=== PATIENT | male | born 1965 | race Caucasian/White ===

== ENCOUNTER 2019-05-22 10:44 | Inpatient (IN) | payer OTHER ==
[~2019-05-22] VITALS: Ht 175.3 cm; Wt 65.0 kg
[~2019-05-22 10:44] MED LIST: ACET-1600 PO; DEXA4TAB66 PO; LEVE500T8 PO; rolaids PO
[2019-05-22] MEDS ORDERED: LACTATED RINGERS 1,000 ML IV SCH (11:08)
[2019-05-22] MEDS ORDERED: GADOTERATE 7.5 MMOL/15 ML SYR ONE (13:19)
[2019-05-22] MEDS ORDERED: PROPOFOL 50 ML ONE (14:13)
[2019-05-22] MEDS ORDERED: FENTANYL PF 250 MCG/5ML ONE ×2 (14:13→15:29)
[2019-05-22] MEDS ORDERED: THROMBIN 5,000 UNIT VIAL TP ONE (14:16)
[2019-05-22] MEDS ORDERED: MIDAZOLAM 1 MG/ML, 2ML ONE (14:26)
[2019-05-22] MEDS ORDERED: DEXAMETHASONE 4 MG/ML, 1ML ONE ×2 (15:03)
[2019-05-22] MEDS ORDERED: ONDANSETRON 2MG/ML, 2ML ONE ×2 (15:03→19:50)
[2019-05-22] MEDS ORDERED: CEFAZOLIN 1,000 MG ONE (15:07)
[2019-05-22] MEDS ORDERED: ROCURONIUM 10MG/ML,5ML ONE (15:07)
[2019-05-22] MEDS ORDERED: MANNITOL PMX 20% 500 ML ONE (15:09)
[2019-05-22] MEDS ORDERED: BUPIVACAINE/PF-EPI 0.5% 1:200K INFIL ONE (15:21)
[2019-05-22] MEDS ORDERED: EPINEPHRINE 1 MG/ML, 1ML INFIL ONE (15:21)
[2019-05-22] MEDS ORDERED: OXYcodone 5 MG/5 ML ORAL.SOL UDC PO PRN (15:30)
[2019-05-22] MEDS ORDERED: ONDANSETRON ODT 8 MG PO PRN (15:30)
[2019-05-22] MEDS ORDERED: EPHEDRINE 50 MG/ML, 1ML IVPush PRN (15:30)
[2019-05-22] MEDS ORDERED: PROMETHAZINE 25 MG/ML, 1ML IV PRN (15:30)
[2019-05-22] MEDS ORDERED: MORPHINE SULFATE 4 MG/ML, 1ML IVPush PRN (15:30)
[2019-05-22] MEDS ORDERED: DIPHENHYDRAMINE 50 MG/ML, 1ML IVPush PRN (15:30)
[2019-05-22] MEDS ORDERED: METOPROLOL 1 MG/ML, 5ML IV PRN (15:30)
[2019-05-22] MEDS ORDERED: FENTANYL PF 100 MCG/2ML IV PRN (15:30)
[2019-05-22] MEDS ORDERED: hydrALAzine 20 MG/ML, 1ML IV PRN (15:30)
[2019-05-22] MEDS ORDERED: EPHEDRINE 50 MG/ML, 1ML IM PRN (15:30)
[2019-05-22] MEDS ORDERED: DIAZEPAM 5 MG/ML, 2ML IVPush PRN (15:30)
[2019-05-22] MEDS ORDERED: ONDANSETRON 2MG/ML, 2ML IV PRN ×2 (15:30→19:00)
[2019-05-22] MEDS ORDERED: ALBUTEROL/IPRATROPIUM 2.5MG/0.5MG, 3 ML NPPB PRN (15:30)
[2019-05-22] MEDS ORDERED: MAGNESIUM HYDROXIDE 8%, 30ML UDC PO PRN (19:00)
[2019-05-22] MEDS ORDERED: LABETALOL 5MG/ML, 20ML IV PRN (19:00)
[2019-05-22] MEDS ORDERED: MORPHINE SULFATE 4 MG/ML, 1ML IV PRN (19:00)
[2019-05-22] MEDS ORDERED: ACETAMINOPHEN 325 MG TABLET PO PRN (19:00)
[2019-05-22] MEDS ORDERED: BISACODYL 10 MG SUPP PR PRN (19:00)
[2019-05-22 19:42] LABS: MEAN CORPUSCULAR HEMOGLOBIN 27.8 pg (27.5-34.5); MEAN CORPUSCULAR HGB CONC 33.2 g/dL (33.2-36.2); MEAN CORPUSCULAR VOLUME 83.6 fL (81-97); MEAN PLATELET VOLUME 8.2 fL (7.4-10.4); PLATELET COUNT 184 x10^3/uL (130-400); RED BLOOD COUNT 4.71 x10^6/uL (4.38-5.82)
[2019-05-22 19:46] LABS: ANION GAP 7 mmol/L (5-15); CALCIUM 8.2 mg/dL (8.5-10.1); CHLORIDE 110 mmol/L (98-107)
[2019-05-22 19:48] LABS: CREATININE 0.84 mg/dL (0.7-1.3)
[2019-05-22] MEDS ORDERED: POTASSIUM CHLORIDE 40 MEQ in SODIUM CHLORIDE 0.9% 1,000 ML IV SCH (20:04)
[2019-05-22 20:21] LABS: BASOPHILS # (AUTO) 0.03 x10^3/uL (0-0.1); BASOPHILS % (AUTO) 0 % (0-1); EOSINOPHILS # (AUTO) 0.12 x10^3/uL (0-0.4); EOSINOPHILS % (AUTO) 1 % (1-7); LYMPHOCYTES # (AUTO) 1.18 x10^3/uL (1-3.4); LYMPHOCYTES % (AUTO) 6 % (22-44); MD SCAN; MONOCYTES # (AUTO) 0.59 x10^3/uL (0.2-0.8); MONOCYTES % (AUTO) 3 % (2-9); NEUTROPHILS # (AUTO) 17.32 x10^3/uL (1.8-6.8); NEUTROPHILS % (AUTO) 90 % (42-75)
[2019-05-22] MEDS: CEFAZOLIN PMX 1GM/50ML 50 ML IVPB SCH (20:31)
[2019-05-22] MEDS ORDERED: DEXAMETHASONE 4 MG TABLET PO SCH (21:00)
[2019-05-22] MEDS: LEVETIRACETAM 500 MG TABLET PO SCH (21:00)
[2019-05-22] MEDS ORDERED: DEXAMETHASONE 4 MG/ML, 1ML IV SCH (21:00)
[2019-05-22] MEDS ORDERED: FAMOTIDINE 20 MG TABLET ONE (21:23)
[2019-05-22] MEDS: FAMOTIDINE 20 MG TABLET PO SCH (21:30)
[2019-05-22] MEDS: OXYcodone/APAP 5/325MG TABLET PO PRN (21:30)
[2019-05-22] MEDS: ACETAMINOPHEN 500 MG TABLET PO SCH (22:05)
[2019-05-23] MEDS: OXYcodone/APAP 5/325MG TABLET PO PRN ×5 (00:12→21:22)
[2019-05-23 04:00] VITALS: BP 116/74
[2019-05-23 05:03] LABS: MICROSCOPIC AUTO
[2019-05-23 05:05] LABS: CULTURE INDICATED? NO
[2019-05-23 05:15] LABS: OSMOLALITY,URINE 191 mOsm/kg (500-850)
[2019-05-23 06:04] LABS: ANION GAP 7 mmol/L (5-15); CALCIUM 7.7 mg/dL (8.5-10.1); CHLORIDE 109 mmol/L (98-107); CREATININE 0.79 mg/dL (0.7-1.3)
[2019-05-23] MEDS: CEFAZOLIN PMX 1GM/50ML 50 ML IVPB SCH (06:32)
[2019-05-23] MEDS: LEVETIRACETAM 500 MG TABLET PO SCH ×2 (08:44→21:21)
[2019-05-23] MEDS: ACETAMINOPHEN 500 MG TABLET PO SCH ×2 (08:45→21:21)
[2019-05-23] MEDS: FAMOTIDINE 20 MG TABLET PO SCH ×2 (08:45→21:21)
[2019-05-23] MEDS: SENNA/DOCUSATE TABLET PO SCH (08:45)
[2019-05-23] MEDS: DEXAMETHASONE 4 MG TABLET PO SCH ×3 (08:45→21:21)
[2019-05-24 04:00] VITALS: BP 109/62
[2019-05-24 04:48] LABS: BASOPHILS # (AUTO) 0.03 x10^3/uL (0-0.1); BASOPHILS % (AUTO) 0 % (0-1); EOSINOPHILS % (AUTO) 0 % (1-7); LYMPHOCYTES # (AUTO) 0.68 x10^3/uL (1-3.4); LYMPHOCYTES % (AUTO) 4 % (22-44); MD NO; MEAN CORPUSCULAR HEMOGLOBIN 27.7 pg (27.5-34.5); MEAN CORPUSCULAR HGB CONC 32.8 g/dL (33.2-36.2); MEAN CORPUSCULAR VOLUME 84.5 fL (81-97); MEAN PLATELET VOLUME 8.1 fL (7.4-10.4); MONOCYTES # (AUTO) 0.77 x10^3/uL (0.2-0.8); MONOCYTES % (AUTO) 5 % (2-9); NEUTROPHILS # (AUTO) 14.94 x10^3/uL (1.8-6.8); NEUTROPHILS % (AUTO) 91 % (42-75); PLATELET COUNT 194 x10^3/uL (130-400); RED BLOOD COUNT 4.64 x10^6/uL (4.38-5.82); RED CELL DISTRIBUTION WIDTH 14.8 % (9.4-14.8)
[2019-05-24 04:57] LABS: ALANINE AMINOTRANSFERASE 33 U/L (12-78); ALBUMIN 2.4 g/dL (3.4-5.0); ANION GAP 6 mmol/L (5-15); CHLORIDE 109 mmol/L (98-107); CREATININE 0.72 mg/dL (0.7-1.3)
[2019-05-24 05:00] LABS: ALKALINE PHOSPHATASE 75 U/L (45-117); BILIRUBIN,TOTAL 0.4 mg/dL (0.2-1.0); TOTAL PROTEIN 6.2 g/dL (6.4-8.2)
[2019-05-24] MEDS ORDERED: GADOTERATE 7.5 MMOL/15 ML SYR ONE (05:43)
[2019-05-24] MEDS: FAMOTIDINE 20 MG TABLET PO SCH ×2 (07:35→20:40)
[2019-05-24] MEDS: SENNA/DOCUSATE TABLET PO SCH (07:35)
[2019-05-24] MEDS: DEXAMETHASONE 4 MG TABLET PO SCH ×4 (07:36→20:40)
[2019-05-24] MEDS: LEVETIRACETAM 500 MG TABLET PO SCH ×2 (07:36→20:40)
[2019-05-24] MEDS: OXYcodone/APAP 5/325MG TABLET PO PRN (07:37)
[2019-05-24] MEDS: ACETAMINOPHEN 500 MG TABLET PO SCH ×3 (07:38→20:40)
[2019-05-24] MEDS: OXYcodone 5 MG/5 ML ORAL.SOL UDC PO PRN ×2 (13:42→19:17)
[2019-05-24 18:35] VITALS: BP 117/74
[2019-05-24 23:54] VITALS: BP 115/75
[2019-05-25] MEDS: OXYcodone 5 MG/5 ML ORAL.SOL UDC PO PRN ×4 (01:46→20:39)
[2019-05-25 03:50] VITALS: BP 123/84
[2019-05-25 08:28] VITALS: BP 123/75
[2019-05-25] MEDS: FAMOTIDINE 20 MG TABLET PO SCH ×2 (08:43→20:38)
[2019-05-25] MEDS: ACETAMINOPHEN 500 MG TABLET PO SCH ×2 (08:43→20:39)
[2019-05-25] MEDS: DEXAMETHASONE 4 MG TABLET PO SCH ×3 (08:44→20:39)
[2019-05-25] MEDS: LEVETIRACETAM 500 MG TABLET PO SCH ×2 (08:45→20:38)
[2019-05-25] MEDS: SENNA/DOCUSATE TABLET PO SCH (08:45)
[2019-05-25 09:47] LABS: BASOPHILS # (AUTO) 0.01 x10^3/uL (0-0.1); BASOPHILS % (AUTO) 0 % (0-1); EOSINOPHILS # (AUTO) 0.05 x10^3/uL (0-0.4); EOSINOPHILS % (AUTO) 0 % (1-7); LYMPHOCYTES # (AUTO) 1.51 x10^3/uL (1-3.4); LYMPHOCYTES % (AUTO) 10 % (22-44); MD NO; MEAN CORPUSCULAR HGB CONC 33.4 g/dL (33.2-36.2); MEAN CORPUSCULAR VOLUME 83.8 fL (81-97); MEAN PLATELET VOLUME 8.2 fL (7.4-10.4); MONOCYTES # (AUTO) 1.11 x10^3/uL (0.2-0.8); MONOCYTES % (AUTO) 7 % (2-9); NEUTROPHILS % (AUTO) 83 % (42-75); PLATELET COUNT 194 x10^3/uL (130-400); RED BLOOD COUNT 4.42 x10^6/uL (4.38-5.82); RED CELL DISTRIBUTION WIDTH 14.5 % (9.4-14.8)
[2019-05-25 09:51] LABS: ANION GAP 7 mmol/L (5-15); CALCIUM 7.9 mg/dL (8.5-10.1); CHLORIDE 103 mmol/L (98-107); CREATININE 0.68 mg/dL (0.7-1.3)
[2019-05-25 11:31] VITALS: BP 109/65
[2019-05-25 16:26] VITALS: BP 121/77
[2019-05-25 18:07] VITALS: BP 119/85
[2019-05-26] MEDS: OXYcodone 5 MG/5 ML ORAL.SOL UDC PO PRN ×4 (01:13→13:42)
[2019-05-26 01:20] VITALS: BP 126/81
[2019-05-26 06:02] LABS: BASOPHILS % (AUTO) 0 % (0-1); EOSINOPHILS % (AUTO) 0 % (1-7); LYMPHOCYTES # (AUTO) 1.37 x10^3/uL (1-3.4); LYMPHOCYTES % (AUTO) 9 % (22-44); MD NO; MEAN CORPUSCULAR HEMOGLOBIN 27.9 pg (27.5-34.5); MEAN CORPUSCULAR HGB CONC 32.8 g/dL (33.2-36.2); MEAN PLATELET VOLUME 8.6 fL (7.4-10.4); MONOCYTES # (AUTO) 0.96 x10^3/uL (0.2-0.8); MONOCYTES % (AUTO) 6 % (2-9); NEUTROPHILS # (AUTO) 12.54 x10^3/uL (1.8-6.8); NEUTROPHILS % (AUTO) 84 % (42-75); PLATELET COUNT 199 x10^3/uL (130-400); RED BLOOD COUNT 4.77 x10^6/uL (4.38-5.82); RED CELL DISTRIBUTION WIDTH 14.7 % (9.4-14.8)
[2019-05-26 06:15] LABS: CHLORIDE 101 mmol/L (98-107)
[2019-05-26 06:22] LABS: ANION GAP 7 mmol/L (5-15); CALCIUM 8.4 mg/dL (8.5-10.1); CREATININE 0.76 mg/dL (0.7-1.3)
[2019-05-26 07:07] VITALS: BP 123/79
[2019-05-26] MEDS: SENNA/DOCUSATE TABLET PO SCH (08:00)
[2019-05-26] MEDS: FAMOTIDINE 20 MG TABLET PO SCH (08:00)
[2019-05-26] MEDS: DEXAMETHASONE 4 MG TABLET PO SCH (08:00)
[2019-05-26] MEDS: ACETAMINOPHEN 500 MG TABLET PO SCH (08:00)
[2019-05-26] MEDS: LEVETIRACETAM 500 MG TABLET PO SCH (08:00)
[2019-05-26 14:23] VITALS: BP 118/78
== END 2019-05-26 14:34 | disposition home or self-care (01) | DRG 27 ==
LOC: ORIP 10:44 → CCU 19:40 → 4NE 05-24 18:26 → DCLOUNGE 05-26 14:25
PROVIDERS: ADMIT Neurological Surgery; ATTEND Neurological Surgery
PROC: 00B00ZX Excision of Brain, Open Approach, Diagnostic (ICD-10-PCS; 2019-05-22)
PROC: 00B00ZZ Excision of Brain, Open Approach (ICD-10-PCS; 2019-05-22)
PROC: 03HY32Z Insertion of Monitoring Device into Upper Artery, Percutaneous Approach (ICD-10-PCS; principal; 2019-05-22 14:15)
PROC: 0T9B70Z Drainage of Bladder with Drainage Device, Via Natural or Artificial Opening (ICD-10-PCS; 2019-05-23)
DX: C79.31 Secondary malignant neoplasm of brain (principal); K21.9 Gastro-esophageal reflux disease without esophagitis; Z87.891 Personal history of nicotine dependence; Z80.8 Family history of malignant neoplasm of other organs or systems; Z83.3 Family history of diabetes mellitus
CPT/HCPCS: 36415; 70552; 70553; 80048; 80053; 81001; 82962; 83735; 83930; 83935; 85025; 86850; 86900; 87081; 88307; 88331; 88341; 88342; 93005; 99156; 99157; C1713; G0378; J0171; J0690; J1100; J2250; J2405; J2704; J3010; J3480; 92523-GN; A4648; A9575; C1781; J7030; J7120

== ENCOUNTER 2019-06-23 12:02 | Inpatient (IN) | payer OTHER ==
[~2019-06-23] VITALS: Ht 175.3 cm; Wt 57.6 kg
--- NOTE | 2019-06-23 12:28 | NUR ---
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 PT TO RESTROOM. STEADY UPON AMBULATION FROM WHEELCHAIR TO TOILET.
[2019-06-23 12:57] LABS: MEAN CORPUSCULAR HEMOGLOBIN 28.4 pg (27.5-34.5); MEAN CORPUSCULAR HGB CONC 33.2 g/dL (33.2-36.2); MEAN CORPUSCULAR VOLUME 85.6 fL (81-97); MEAN PLATELET VOLUME 8.4 fL (7.4-10.4); PLATELET COUNT 350 x10^3/uL (130-400); RED BLOOD COUNT 5.04 x10^6/uL (4.38-5.82); RED CELL DISTRIBUTION WIDTH 17.2 % (9.4-14.8)
[2019-06-23] MEDS ORDERED: SODIUM CHLORIDE 0.9% 1,000 ML IV ONE (13:07)
[2019-06-23 13:14] LABS: CHLORIDE 103 mmol/L (98-107)
[2019-06-23 13:17] LABS: ANION GAP 9 mmol/L (5-15); CALCIUM 8.8 mg/dL (8.5-10.1); CREATININE 0.79 mg/dL (0.7-1.3)
[2019-06-23 13:21] LABS: MD YES
[2019-06-23] MEDS ORDERED: DEXAMETHASONE 4 MG/ML, 1ML IVPush ONE (13:30)
[2019-06-23] MEDS ORDERED: SODIUM CHLORIDE FLUSH 10ML SYR IVF ONE (13:30)
[2019-06-23 13:31] LABS: LYMPH#(MANUAL) 1.29 x10^3/uL (1-3.4); LYMPHS% (MANUAL) 6 % (22-44); MONOS#(MANUAL) 1.51 x10^3/uL (0.3-2.7); MONOS% (MANUAL) 7 % (2-9); NRBC % (MANUAL) 1 % (0-1); SEG#(MANUAL) 18.71 x10^3/uL (1.8-6.8); SEGS% (MANUAL) 87 % (42-75)
[2019-06-23] MEDS ORDERED: DEXAMETHASONE 4 MG/ML, 1ML ONE (13:31)
[2019-06-23] MEDS ORDERED: ONDANSETRON 2MG/ML, 2ML ONE (13:31)
[2019-06-23] MEDS ORDERED: MORPHINE SULFATE 4 MG/ML, 1ML ONE (13:31)
[2019-06-23 13:33] LABS: ANISOCYTOSIS 1+; POLYCHROMASIA 1+
[2019-06-23] MEDS: MORPHINE SULFATE 4 MG/ML, 1ML IVPush PRN (13:33)
[2019-06-23 13:35] LABS: <PLATELET ESTIMATE> ADEQUATE; LARGE PLATELETS 1+
[2019-06-23] MEDS ORDERED: ONDANSETRON 2MG/ML, 2ML IVPush ONE (14:00)
--- NOTE | 2019-06-23 14:24 | NUR ---
TO ESOPHAGRAM REPORTS THROAT PAIN SLIGHTLY IMPROVED TO 4/10
[2019-06-23 14:30] LABS: MICROSCOPIC NOT IND
[2019-06-23 14:32] LABS: CULTURE INDICATED? NO
[2019-06-23] MEDS ORDERED: HYDROmorphone 1 MG/ML, 1ML INJ ONE ×2 (14:44→16:53)
[2019-06-23] MEDS: HYDROmorphone 2 MG/ML, 1ML IVPush PRN ×2 (14:46→16:55)
--- NOTE | 2019-06-23 14:47 | NUR ---
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
--- NOTE | 2019-06-23 15:16 | NUR ---
to ct scan
[2019-06-23] MEDS ORDERED: OMNIPAQUE 350 MG/ML, 150 ML BOTTLE ONE (15:28)
[2019-06-23] MEDS ORDERED: AMPICILLIN/SULBACTAM 3 GM in SODIUM CHLORIDE 0.9% 100 ML IV ONE (16:30)
[2019-06-23] MEDS ORDERED: PIPERACILLIN/TAZO/PMX 3.375GM 50 ML IVPB ONE (16:30)
[2019-06-23] MEDS ORDERED: DEXA4TAB66 PO (16:43)
[2019-06-23] MEDS ORDERED: OXYC5CAP2 PO (16:43)
[2019-06-23] MEDS ORDERED: PIPERACILLIN/TAZO/PMX 3.375GM 50 ML ONE (16:52)
[2019-06-23] MEDS ORDERED: BISACODYL 10 MG SUPP PR PRN (17:30)
[2019-06-23] MEDS ORDERED: LORazepam 2 MG/ML, 1ML IVPush PRN (17:30)
[2019-06-23] MEDS ORDERED: ONDANSETRON 2MG/ML, 2ML IVPush PRN (17:30)
--- NOTE | 2019-06-23 17:40 | NUR ---
ATTEMPTED TO CALL REPORT X1. RN UNAVAILABLE
--- NOTE | 2019-06-23 17:42 | NUR ---
JOSLYN COMPLETED IVF MAINT INFUSION HELD FOR TRANSFER PAIN IMPROVED TO 3/10
[2019-06-23] MEDS: morphine SULFATE 10 MG/ML, 1ML IVPush PRN ×2 (18:49→23:56)
[2019-06-23 20:12] VITALS: BP 153/98
[2019-06-23] MEDS: DEXAMETHASONE 4 MG/ML, 1ML IVPush SCH (20:25)
[2019-06-23] MEDS: D5%-0.45% NACL 1,000 ML IV SCH (20:25)
[2019-06-23] MEDS: PIPERACILLIN/TAZO/PMX 3.375GM 50 ML IV SCH (23:55)
[2019-06-24 00:05] VITALS: BP 137/93
[2019-06-24] MEDS ORDERED: ALBUTEROL SULFATE 2.5 MG/3 ML NPPB PRN (03:30)
[2019-06-24] MEDS: DEXAMETHASONE 4 MG/ML, 1ML IVPush SCH ×4 (03:53→21:27)
[2019-06-24] MEDS: D5%-0.45% NACL 1,000 ML IV SCH ×3 (04:13→21:27)
[2019-06-24] MEDS: morphine SULFATE 10 MG/ML, 1ML IVPush PRN ×6 (04:13→23:59)
[2019-06-24 05:42] LABS: MEAN CORPUSCULAR HEMOGLOBIN 28.2 pg (27.5-34.5); MEAN CORPUSCULAR HGB CONC 32.7 g/dL (33.2-36.2); MEAN CORPUSCULAR VOLUME 86.2 fL (81-97); MEAN PLATELET VOLUME 8.9 fL (7.4-10.4); PLATELET COUNT 297 x10^3/uL (130-400); RED CELL DISTRIBUTION WIDTH 17.4 % (9.4-14.8)
[2019-06-24 05:48] LABS: ANION GAP 10 mmol/L (5-15); CALCIUM 8.8 mg/dL (8.5-10.1); CHLORIDE 109 mmol/L (98-107); CREATININE 0.96 mg/dL (0.7-1.3)
[2019-06-24 06:07] LABS: BASOPHILS # (AUTO) 0.01 x10^3/uL (0-0.1); BASOPHILS % (AUTO) 0 % (0-1); EOSINOPHILS % (AUTO) 0 % (1-7); LYMPHOCYTES # (AUTO) 1.02 x10^3/uL (1-3.4); LYMPHOCYTES % (AUTO) 7 % (22-44); MD SCAN; MONOCYTES # (AUTO) 1.51 x10^3/uL (0.2-0.8); MONOCYTES % (AUTO) 10 % (2-9); NEUTROPHILS # (AUTO) 12.34 x10^3/uL (1.8-6.8); NEUTROPHILS % (AUTO) 83 % (42-75)
[2019-06-24 06:42] VITALS: BP 134/87
[2019-06-24] MEDS: PANTOPRAZOLE 40 MG IV IVPush SCH (07:51)
[2019-06-24] MEDS: PIPERACILLIN/TAZO/PMX 3.375GM 50 ML IV SCH ×2 (08:14→16:59)
--- NOTE | 2019-06-24 12:45 | NUR ---
TF Recommendations if needed: Jevity 1.2 full goal 75 ml/hr if strict npo with no PO intake of liquids and no ivf recommend 200ml free water flush Q 6 hours to meet hydration needs.
[2019-06-24 13:51] VITALS: BP 154/94
--- NOTE | 2019-06-24 18:07 | NUR ---
Rec: vs. outpatient dysphagia intervention Addendum: 06/24/19 at 1807 by Beatrice MCINTYRE Amended: Links added.
[2019-06-24 18:11] VITALS: BP 146/94
[2019-06-24 19:42] VITALS: BP 136/87
[2019-06-25] MEDS: PIPERACILLIN/TAZO/PMX 3.375GM 50 ML IV SCH ×4 (00:07→23:55)
[2019-06-25 00:08] VITALS: BP 144/92
[2019-06-25] MEDS: DEXAMETHASONE 4 MG/ML, 1ML IVPush SCH ×4 (03:19→20:44)
[2019-06-25] MEDS: morphine SULFATE 10 MG/ML, 1ML IVPush PRN ×6 (03:25→23:55)
[2019-06-25] MEDS: D5%-0.45% NACL 1,000 ML IV SCH ×3 (04:51→20:44)
[2019-06-25 05:30] LABS: CHLORIDE 110 mmol/L (98-107)
[2019-06-25 05:36] LABS: ANION GAP 6 mmol/L (5-15); CALCIUM 8.9 mg/dL (8.5-10.1)
[2019-06-25 05:37] LABS: BASOPHILS % (AUTO) 0 % (0-1); EOSINOPHILS # (AUTO) 0.01 x10^3/uL (0-0.4); EOSINOPHILS % (AUTO) 0 % (1-7); LYMPHOCYTES # (AUTO) 0.57 x10^3/uL (1-3.4); LYMPHOCYTES % (AUTO) 5 % (22-44); MD NO; MEAN CORPUSCULAR HEMOGLOBIN 28.1 pg (27.5-34.5); MEAN CORPUSCULAR HGB CONC 32.3 g/dL (33.2-36.2); MEAN PLATELET VOLUME 8.9 fL (7.4-10.4); MONOCYTES # (AUTO) 0.97 x10^3/uL (0.2-0.8); MONOCYTES % (AUTO) 8 % (2-9); NEUTROPHILS # (AUTO) 10.71 x10^3/uL (1.8-6.8); NEUTROPHILS % (AUTO) 87 % (42-75); PLATELET COUNT 250 x10^3/uL (130-400); RED BLOOD COUNT 4.19 x10^6/uL (4.38-5.82)
[2019-06-25 07:34] VITALS: BP_SYST 147; BP_SYST 152; BP_DIAS 95; BP_DIAS 99
[2019-06-25] MEDS: LIDODERM 5% PATCH TD PRN (08:52)
[2019-06-25] MEDS: PANTOPRAZOLE 40 MG IV IVPush SCH (08:53)
[2019-06-25] MEDS: MORPHINE SULFATE 4 MG/ML, 1ML IVPush PRN (10:28)
[2019-06-25 12:31] VITALS: BP 163/116
[2019-06-25] MEDS ORDERED: hydrALAzine 20 MG/ML, 1ML ONE (12:52)
[2019-06-25] MEDS: hydrALAzine 20 MG/ML, 1ML IV PRN (12:59)
[2019-06-25 16:11] VITALS: BP 155/64
[2019-06-25 19:24] VITALS: BP 151/69
[2019-06-26 01:10] VITALS: BP 151/90
[2019-06-26] MEDS: morphine SULFATE 10 MG/ML, 1ML IVPush PRN ×5 (03:17→18:24)
[2019-06-26] MEDS: DEXAMETHASONE 4 MG/ML, 1ML IVPush SCH ×4 (03:17→22:11)
[2019-06-26] MEDS: D5%-0.45% NACL 1,000 ML IV SCH (05:58)
[2019-06-26 06:14] LABS: BASOPHILS % (AUTO) 0 % (0-1); EOSINOPHILS # (AUTO) 0.05 x10^3/uL (0-0.4); EOSINOPHILS % (AUTO) 0 % (1-7); LYMPHOCYTES # (AUTO) 0.45 x10^3/uL (1-3.4); LYMPHOCYTES % (AUTO) 4 % (22-44); MD NO; MEAN CORPUSCULAR HEMOGLOBIN 28.2 pg (27.5-34.5); MEAN CORPUSCULAR HGB CONC 32.3 g/dL (33.2-36.2); MEAN CORPUSCULAR VOLUME 87.4 fL (81-97); MEAN PLATELET VOLUME 8.9 fL (7.4-10.4); MONOCYTES # (AUTO) 0.99 x10^3/uL (0.2-0.8); MONOCYTES % (AUTO) 8 % (2-9); NEUTROPHILS # (AUTO) 10.55 x10^3/uL (1.8-6.8); NEUTROPHILS % (AUTO) 88 % (42-75); PLATELET COUNT 249 x10^3/uL (130-400); RED BLOOD COUNT 4.77 x10^6/uL (4.38-5.82); RED CELL DISTRIBUTION WIDTH 18.3 % (9.4-14.8)
[2019-06-26 06:22] LABS: INTERNATIONAL NORMALIZED RATIO 0.92 (0.93-1.1); PROTHROMBIN TIME 9.7 Seconds (9.6-11.5)
[2019-06-26 06:26] LABS: ANION GAP 5 mmol/L (5-15); CALCIUM 9.6 mg/dL (8.5-10.1); CHLORIDE 114 mmol/L (98-107)
[2019-06-26 06:27] LABS: CREATININE 0.84 mg/dL (0.7-1.3)
[2019-06-26] MEDS: PANTOPRAZOLE 40 MG IV IVPush SCH ×2 (07:34→22:11)
[2019-06-26] MEDS: PIPERACILLIN/TAZO/PMX 3.375GM 50 ML IV SCH ×2 (07:34→17:27)
[2019-06-26 07:56] VITALS: BP 136/91
[2019-06-26] MEDS: LIDODERM 5% PATCH TD PRN (10:00)
[2019-06-26] MEDS: SUCRALFATE 1 GM/10 ML UDC NG SCH ×5 (11:00→22:11)
[2019-06-26] MEDS ORDERED: FENTANYL 12 MCG PATCH TD SCH (11:00)
[2019-06-26] MEDS: DEXTROSE 5% 1,000 ML IV SCH ×2 (12:55→22:10)
[2019-06-26 19:25] VITALS: BP 127/63
[2019-06-27] MEDS: morphine SULFATE 10 MG/ML, 1ML IVPush PRN ×3 (00:01→20:29)
[2019-06-27] MEDS: PIPERACILLIN/TAZO/PMX 3.375GM 50 ML IV SCH ×3 (01:40→16:23)
[2019-06-27] MEDS: DEXTROSE 5% 1,000 ML IV SCH ×3 (01:48→23:08)
[2019-06-27 04:35] LABS: MEAN CORPUSCULAR HEMOGLOBIN 28.2 pg (27.5-34.5); MEAN CORPUSCULAR HGB CONC 32.5 g/dL (33.2-36.2); MEAN CORPUSCULAR VOLUME 86.8 fL (81-97); MEAN PLATELET VOLUME 9.4 fL (7.4-10.4); PLATELET COUNT 228 x10^3/uL (130-400); RED BLOOD COUNT 4.55 x10^6/uL (4.38-5.82); RED CELL DISTRIBUTION WIDTH 18.2 % (9.4-14.8)
[2019-06-27 04:44] LABS: ANION GAP 6 mmol/L (5-15); CALCIUM 9.2 mg/dL (8.5-10.1); CHLORIDE 118 mmol/L (98-107)
[2019-06-27] MEDS: DEXAMETHASONE 4 MG/ML, 1ML IVPush SCH ×4 (05:21→23:08)
[2019-06-27] MEDS: hydrALAzine 20 MG/ML, 1ML IV PRN (05:27)
[2019-06-27 05:56] LABS: BASOPHILS % (AUTO) 0 % (0-1); EOSINOPHILS % (AUTO) 0 % (1-7); LYMPHOCYTES % (AUTO) 7 % (22-44); MD SCAN; MONOCYTES # (AUTO) 1.45 x10^3/uL (0.2-0.8); MONOCYTES % (AUTO) 14 % (2-9); NEUTROPHILS # (AUTO) 8.56 x10^3/uL (1.8-6.8); NEUTROPHILS % (AUTO) 80 % (42-75)
[2019-06-27] MEDS: SUCRALFATE 1 GM/10 ML UDC NG SCH ×4 (07:00→20:19)
[2019-06-27 07:49] VITALS: BP 132/68
[2019-06-27] MEDS: PANTOPRAZOLE 40 MG IV IVPush SCH ×2 (10:18→20:19)
[2019-06-27] MEDS: FENTANYL REMOVE PATCH NOTE XX SCH (11:30)
[2019-06-27] MEDS: FENTANYL 25 MCG PATCH TD SCH (11:41)
[2019-06-27 19:41] VITALS: BP 125/87
[2019-06-28] MEDS: PIPERACILLIN/TAZO/PMX 3.375GM 50 ML IV SCH (01:35)
[2019-06-28 03:16] VITALS: BP 118/77
[2019-06-28 05:09] LABS: MEAN CORPUSCULAR HEMOGLOBIN 28.5 pg (27.5-34.5); MEAN CORPUSCULAR HGB CONC 32.7 g/dL (33.2-36.2); MEAN PLATELET VOLUME 9.5 fL (7.4-10.4); PLATELET COUNT 203 x10^3/uL (130-400); RED BLOOD COUNT 4.46 x10^6/uL (4.38-5.82)
[2019-06-28 05:23] LABS: ANION GAP 6 mmol/L (5-15); CALCIUM 9.1 mg/dL (8.5-10.1); CHLORIDE 117 mmol/L (98-107); CREATININE 1.52 mg/dL (0.7-1.3)
[2019-06-28] MEDS: DEXAMETHASONE 4 MG/ML, 1ML IVPush SCH ×4 (06:04→23:23)
[2019-06-28] MEDS: DEXTROSE 5% 1,000 ML IV SCH (06:04)
[2019-06-28 06:10] LABS: BASOPHILS # (AUTO) 0.01 x10^3/uL (0-0.1); BASOPHILS % (AUTO) 0 % (0-1); EOSINOPHILS # (AUTO) 0.05 x10^3/uL (0-0.4); EOSINOPHILS % (AUTO) 0 % (1-7); LYMPHOCYTES # (AUTO) 1.02 x10^3/uL (1-3.4); LYMPHOCYTES % (AUTO) 7 % (22-44); MD SCAN; MONOCYTES # (AUTO) 1.65 x10^3/uL (0.2-0.8); MONOCYTES % (AUTO) 12 % (2-9); NEUTROPHILS # (AUTO) 11.68 x10^3/uL (1.8-6.8); NEUTROPHILS % (AUTO) 81 % (42-75)
[2019-06-28] MEDS: SUCRALFATE 1 GM/10 ML UDC NG SCH ×4 (07:00→19:18)
[2019-06-28 08:38] VITALS: BP 131/88
[2019-06-28] MEDS: PANTOPRAZOLE 40 MG IV IVPush SCH ×2 (08:42→19:24)
[2019-06-28] MEDS: morphine SULFATE 10 MG/ML, 1ML IVPush PRN ×5 (08:47→23:23)
[2019-06-28] MEDS: AMPICILLIN/SULBACTAM 1,500 MG in SODIUM CHLORIDE 0.9% 50 ML IV SCH ×3 (10:40→23:23)
[2019-06-28] MEDS: LACTATED RINGERS 1,000 ML IV SCH ×2 (10:40→23:23)
[2019-06-28 15:59] VITALS: BP 136/97
[2019-06-28 19:03] VITALS: BP 121/87
[2019-06-29 03:05] VITALS: BP 129/89
[2019-06-29] MEDS: morphine SULFATE 10 MG/ML, 1ML IVPush PRN ×6 (03:17→21:52)
[2019-06-29 04:50] LABS: BASOPHILS % (AUTO) 0 % (0-1); EOSINOPHILS % (AUTO) 0 % (1-7); LYMPHOCYTES # (AUTO) 0.74 x10^3/uL (1-3.4); LYMPHOCYTES % (AUTO) 5 % (22-44); MD NO; MEAN CORPUSCULAR HEMOGLOBIN 28.2 pg (27.5-34.5); MEAN CORPUSCULAR VOLUME 88.1 fL (81-97); MEAN PLATELET VOLUME 9.4 fL (7.4-10.4); MONOCYTES # (AUTO) 1.05 x10^3/uL (0.2-0.8); MONOCYTES % (AUTO) 8 % (2-9); NEUTROPHILS # (AUTO) 12.22 x10^3/uL (1.8-6.8); NEUTROPHILS % (AUTO) 87 % (42-75); PLATELET COUNT 207 x10^3/uL (130-400); RED BLOOD COUNT 4.33 x10^6/uL (4.38-5.82); RED CELL DISTRIBUTION WIDTH 18.2 % (9.4-14.8)
[2019-06-29 05:01] LABS: ANION GAP 6 mmol/L (5-15); CHLORIDE 119 mmol/L (98-107)
[2019-06-29] MEDS: AMPICILLIN/SULBACTAM 1,500 MG in SODIUM CHLORIDE 0.9% 50 ML IV SCH ×4 (05:33→23:22)
[2019-06-29] MEDS: DEXAMETHASONE 4 MG/ML, 1ML IVPush SCH ×4 (05:33→23:22)
[2019-06-29] MEDS: SUCRALFATE 1 GM/10 ML UDC NG SCH ×4 (07:00→19:55)
[2019-06-29 08:10] VITALS: BP 130/82
[2019-06-29] MEDS: PANTOPRAZOLE 40 MG IV IVPush SCH ×2 (09:00→20:06)
[2019-06-29] MEDS ORDERED: CEFAZOLIN 1,000 MG ONE (10:50)
[2019-06-29] MEDS ORDERED: PROPOFOL 10 MG/ML, 20ML ONE (10:50)
[2019-06-29] MEDS ORDERED: HYDROmorphone 2 MG/ML, 1ML IVPush PRN (11:30)
[2019-06-29] MEDS ORDERED: ONDANSETRON 2MG/ML, 2ML IV PRN (11:30)
[2019-06-29] MEDS ORDERED: MEPERIDINE/PF 25MG/ML,1ML IVPush PRN (11:30)
[2019-06-29] MEDS ORDERED: FENTANYL PF 100 MCG/2ML IV PRN (11:30)
[2019-06-29] MEDS ORDERED: LABETALOL 5MG/ML, 20ML IV PRN (11:30)
[2019-06-29] MEDS ORDERED: EPHEDRINE 50 MG/ML, 1ML IVPush PRN (11:30)
[2019-06-29] MEDS ORDERED: ACETAMINOPHEN 325 MG TABLET PO PRN (11:30)
[2019-06-29] MEDS ORDERED: PROMETHAZINE 25 MG/ML, 1ML IV PRN (11:30)
[2019-06-29] MEDS ORDERED: hydrALAzine 20 MG/ML, 1ML IV PRN (11:30)
[2019-06-29] MEDS ORDERED: OXYcodone 5 MG/5 ML ORAL.SOL UDC PO PRN (11:30)
[2019-06-29 12:02] VITALS: BP 126/91
[2019-06-29] MEDS ORDERED: OXYcodone IR 5MG TABLET ONE (16:34)
[2019-06-29] MEDS: OXYcodone IR 5MG TABLET GT PRN (16:43)
--- NOTE | 2019-06-29 17:20 | NUR ---
Jevity 1.5 goal: 60 ml/hr Addendum: 06/29/19 at [address] Amended: Links added.
[2019-06-29] MEDS: LACTATED RINGERS 1,000 ML IV SCH (17:33)
[2019-06-29 18:57] VITALS: BP 131/86
[2019-06-30 00:55] VITALS: BP 126/78
[2019-06-30] MEDS: morphine SULFATE 10 MG/ML, 1ML IVPush PRN ×5 (01:08→22:25)
[2019-06-30] MEDS: AMPICILLIN/SULBACTAM 1,500 MG in SODIUM CHLORIDE 0.9% 50 ML IV SCH ×3 (05:13→18:39)
[2019-06-30] MEDS: DEXAMETHASONE 4 MG/ML, 1ML IVPush SCH ×3 (05:13→18:39)
[2019-06-30 05:23] LABS: BASOPHILS % (AUTO) 0 % (0-1); EOSINOPHILS % (AUTO) 0 % (1-7); LYMPHOCYTES # (AUTO) 0.54 x10^3/uL (1-3.4); LYMPHOCYTES % (AUTO) 4 % (22-44); MD NO; MEAN CORPUSCULAR HEMOGLOBIN 28.4 pg (27.5-34.5); MEAN CORPUSCULAR HGB CONC 32.5 g/dL (33.2-36.2); MEAN CORPUSCULAR VOLUME 87.2 fL (81-97); MEAN PLATELET VOLUME 9.9 fL (7.4-10.4); MONOCYTES # (AUTO) 0.73 x10^3/uL (0.2-0.8); MONOCYTES % (AUTO) 6 % (2-9); NEUTROPHILS # (AUTO) 11.59 x10^3/uL (1.8-6.8); NEUTROPHILS % (AUTO) 90 % (42-75); PLATELET COUNT 205 x10^3/uL (130-400); RED BLOOD COUNT 4.29 x10^6/uL (4.38-5.82)
[2019-06-30 05:36] LABS: CHLORIDE 120 mmol/L (98-107)
[2019-06-30 05:42] LABS: ANION GAP 8 mmol/L (5-15); CALCIUM 9.2 mg/dL (8.5-10.1); CREATININE 1.28 mg/dL (0.7-1.3)
[2019-06-30 06:26] VITALS: BP 143/92
[2019-06-30] MEDS: SUCRALFATE 1 GM/10 ML UDC NG SCH ×4 (07:38→22:25)
[2019-06-30] MEDS ORDERED: DEXTROSE 5% 500 ML IV SCH (08:00)
[2019-06-30] MEDS: PANTOPRAZOLE 40 MG IV IVPush SCH ×2 (08:44→20:27)
[2019-06-30] MEDS: OXYcodone IR 5MG TABLET GT PRN ×2 (08:50→15:12)
[2019-06-30] MEDS: FENTANYL REMOVE PATCH NOTE XX SCH (11:53)
[2019-06-30] MEDS: FENTANYL 25 MCG PATCH TD SCH (11:53)
[2019-06-30 12:16] VITALS: BP 124/84
[2019-06-30] MEDS: ENOXAPARIN 40 MG/0.4 ML SQ SCH (15:12)
[2019-06-30 19:49] VITALS: BP 126/85
[2019-06-30] MEDS: OXYcodone 5 MG/5 ML ORAL.SOL UDC PO PRN (21:15)
[2019-07-01] MEDS: DEXAMETHASONE 4 MG/ML, 1ML IVPush SCH ×4 (00:48→18:17)
[2019-07-01] MEDS: AMPICILLIN/SULBACTAM 1,500 MG in SODIUM CHLORIDE 0.9% 50 ML IV SCH ×4 (00:48→18:18)
[2019-07-01 01:21] VITALS: BP 131/84
[2019-07-01] MEDS: morphine SULFATE 10 MG/ML, 1ML IVPush PRN ×4 (01:29→21:35)
[2019-07-01] MEDS: OXYcodone 5 MG/5 ML ORAL.SOL UDC PO PRN ×2 (06:04→18:17)
[2019-07-01 06:17] VITALS: BP 127/82
[2019-07-01] MEDS: SUCRALFATE 1 GM/10 ML UDC NG SCH ×4 (08:19→21:35)
[2019-07-01] MEDS: PANTOPRAZOLE 40 MG IV IVPush SCH ×2 (08:19→21:35)
[2019-07-01] MEDS: LIDODERM 5% PATCH TD PRN (08:20)
[2019-07-01 10:45] LABS: ANION GAP 6 mmol/L (5-15); CALCIUM 8.9 mg/dL (8.5-10.1); CHLORIDE 116 mmol/L (98-107); CREATININE 1.33 mg/dL (0.7-1.3)
[2019-07-01] MEDS: DEXTROSE 5% 500 ML IV SCH ×2 (12:00→22:00)
[2019-07-01] MEDS: ENOXAPARIN 40 MG/0.4 ML SQ SCH (12:43)
[2019-07-01 13:47] VITALS: BP 136/87
[2019-07-01 20:26] VITALS: BP 135/82
[2019-07-02] MEDS: DEXAMETHASONE 4 MG/ML, 1ML IVPush SCH ×4 (00:06→18:09)
[2019-07-02] MEDS: OXYcodone 5 MG/5 ML ORAL.SOL UDC PO PRN ×2 (00:06→06:27)
[2019-07-02] MEDS: AMPICILLIN/SULBACTAM 1,500 MG in SODIUM CHLORIDE 0.9% 50 ML IV SCH ×4 (00:15→18:09)
[2019-07-02 00:16] VITALS: BP 137/86
[2019-07-02] MEDS: morphine SULFATE 10 MG/ML, 1ML IVPush PRN ×5 (03:13→20:35)
[2019-07-02] MEDS: DEXTROSE 5% 500 ML IV SCH ×2 (03:59→11:57)
[2019-07-02 05:03] LABS: ANION GAP 2 mmol/L (5-15); CALCIUM 9.2 mg/dL (8.5-10.1); CHLORIDE 111 mmol/L (98-107); CREATININE 1.22 mg/dL (0.7-1.3)
[2019-07-02] MEDS: SUCRALFATE 1 GM/10 ML UDC NG SCH ×4 (06:27→20:35)
[2019-07-02 07:41] VITALS: BP 127/74
[2019-07-02] MEDS: PANTOPRAZOLE 40 MG IV IVPush SCH ×2 (08:34→20:35)
[2019-07-02] MEDS: LIDODERM 5% PATCH TD PRN (08:34)
[2019-07-02 12:53] VITALS: BP 134/87
[2019-07-02] MEDS: ENOXAPARIN 40 MG/0.4 ML SQ SCH (14:19)
[2019-07-02 19:50] VITALS: BP 130/89
[2019-07-03] MEDS: DEXAMETHASONE 4 MG/ML, 1ML IVPush SCH ×4 (00:21→18:25)
[2019-07-03] MEDS: AMPICILLIN/SULBACTAM 1,500 MG in SODIUM CHLORIDE 0.9% 50 ML IV SCH ×4 (00:21→18:25)
[2019-07-03] MEDS: morphine SULFATE 10 MG/ML, 1ML IVPush PRN ×3 (00:26→14:03)
[2019-07-03] MEDS: DEXTROSE 5% 500 ML IV SCH ×2 (00:27→21:00)
[2019-07-03 03:45] VITALS: BP 139/87
[2019-07-03 05:36] LABS: ANION GAP 2 mmol/L (5-15); CALCIUM 8.9 mg/dL (8.5-10.1); CHLORIDE 108 mmol/L (98-107)
[2019-07-03 05:38] LABS: CREATININE 1.14 mg/dL (0.7-1.3)
[2019-07-03 07:09] VITALS: BP 137/81
[2019-07-03] MEDS: PANTOPRAZOLE 40 MG IV IVPush SCH ×2 (09:07→21:36)
[2019-07-03] MEDS: SUCRALFATE 1 GM/10 ML UDC NG SCH ×4 (09:08→21:35)
[2019-07-03] MEDS: OXYcodone 5 MG/5 ML ORAL.SOL UDC PO PRN ×3 (09:08→21:36)
[2019-07-03] MEDS: LIDODERM 5% PATCH TD PRN (09:08)
[2019-07-03] MEDS: ENOXAPARIN 40 MG/0.4 ML SQ SCH (13:48)
[2019-07-03] MEDS: FENTANYL 25 MCG PATCH TD SCH (13:48)
[2019-07-03] MEDS: FENTANYL REMOVE PATCH NOTE XX SCH (13:49)
[2019-07-03 19:15] VITALS: BP 119/70
[2019-07-04] MEDS: DEXAMETHASONE 4 MG/ML, 1ML IVPush SCH ×4 (00:18→18:22)
[2019-07-04] MEDS: AMPICILLIN/SULBACTAM 1,500 MG in SODIUM CHLORIDE 0.9% 50 ML IV SCH ×4 (00:18→18:21)
[2019-07-04 02:53] VITALS: BP 117/84
[2019-07-04] MEDS: OXYcodone 5 MG/5 ML ORAL.SOL UDC PO PRN ×3 (03:10→18:22)
[2019-07-04 07:06] VITALS: BP 121/72
[2019-07-04 09:34] LABS: ANION GAP 4 mmol/L (5-15); CALCIUM 9.1 mg/dL (8.5-10.1); CHLORIDE 108 mmol/L (98-107); CREATININE 1.08 mg/dL (0.7-1.3)
[2019-07-04] MEDS: PANTOPRAZOLE 40 MG IV IVPush SCH ×2 (09:36→20:11)
[2019-07-04] MEDS: morphine SULFATE 10 MG/ML, 1ML IVPush PRN ×3 (09:36→20:35)
[2019-07-04] MEDS: SUCRALFATE 1 GM/10 ML UDC NG SCH ×4 (09:36→20:11)
[2019-07-04] MEDS: ENOXAPARIN 40 MG/0.4 ML SQ SCH (11:46)
[2019-07-04 12:55] VITALS: BP 122/84
[2019-07-04 19:31] VITALS: BP 118/82
[2019-07-05] MEDS: DEXTROSE 5% 500 ML IV SCH ×2 (00:10→20:54)
[2019-07-05] MEDS: AMPICILLIN/SULBACTAM 1,500 MG in SODIUM CHLORIDE 0.9% 50 ML IV SCH ×4 (00:10→17:53)
[2019-07-05] MEDS: DEXAMETHASONE 4 MG/ML, 1ML IVPush SCH ×4 (00:11→17:53)
[2019-07-05] MEDS: OXYcodone 5 MG/5 ML ORAL.SOL UDC PO PRN ×4 (00:11→18:51)
[2019-07-05 01:56] VITALS: BP 108/75
[2019-07-05 04:38] LABS: MEAN CORPUSCULAR HEMOGLOBIN 28.6 pg (27.5-34.5); MEAN CORPUSCULAR HGB CONC 31.9 g/dL (33.2-36.2); MEAN CORPUSCULAR VOLUME 89.5 fL (81-97); MEAN PLATELET VOLUME 10.4 fL (7.4-10.4); PLATELET COUNT 207 x10^3/uL (130-400); RED BLOOD COUNT 4.26 x10^6/uL (4.38-5.82)
[2019-07-05 04:43] LABS: ANION GAP 4 mmol/L (5-15); CALCIUM 9.5 mg/dL (8.5-10.1); CHLORIDE 110 mmol/L (98-107); CREATININE 0.95 mg/dL (0.7-1.3)
[2019-07-05 05:54] LABS: BASOPHILS # (AUTO) 0.01 x10^3/uL (0-0.1); BASOPHILS % (AUTO) 0 % (0-1); EOSINOPHILS % (AUTO) 0 % (1-7); LYMPHOCYTES # (AUTO) 0.21 x10^3/uL (1-3.4); LYMPHOCYTES % (AUTO) 2 % (22-44); MD SCAN; MONOCYTES # (AUTO) 0.49 x10^3/uL (0.2-0.8); MONOCYTES % (AUTO) 5 % (2-9); NEUTROPHILS # (AUTO) 10.22 x10^3/uL (1.8-6.8); NEUTROPHILS % (AUTO) 94 % (42-75)
[2019-07-05] MEDS: SUCRALFATE 1 GM/10 ML UDC NG SCH ×4 (06:06→20:38)
[2019-07-05 06:30] VITALS: BP 132/86
[2019-07-05] MEDS: morphine SULFATE 10 MG/ML, 1ML IVPush PRN ×3 (09:20→20:50)
[2019-07-05] MEDS: PANTOPRAZOLE 40 MG IV IVPush SCH ×2 (09:20→20:38)
[2019-07-05] MEDS: ENOXAPARIN 40 MG/0.4 ML SQ SCH (11:29)
[2019-07-05 12:39] VITALS: BP 112/81
[2019-07-05 18:57] VITALS: BP 125/84
[2019-07-06] MEDS: AMPICILLIN/SULBACTAM 1,500 MG in SODIUM CHLORIDE 0.9% 50 ML IV SCH ×4 (00:08→17:27)
[2019-07-06] MEDS: morphine SULFATE 10 MG/ML, 1ML IVPush PRN ×5 (00:09→20:37)
[2019-07-06] MEDS: DEXAMETHASONE 4 MG/ML, 1ML IVPush SCH ×4 (00:09→17:27)
[2019-07-06 00:19] VITALS: BP 128/85
[2019-07-06 04:42] LABS: MEAN CORPUSCULAR HGB CONC 32.6 g/dL (33.2-36.2); MEAN CORPUSCULAR VOLUME 88.9 fL (81-97); MEAN PLATELET VOLUME 10.9 fL (7.4-10.4); PLATELET COUNT 213 x10^3/uL (130-400); RED CELL DISTRIBUTION WIDTH 16.9 % (9.4-14.8)
[2019-07-06 04:50] LABS: ANION GAP 2 mmol/L (5-15); CALCIUM 9.1 mg/dL (8.5-10.1); CHLORIDE 109 mmol/L (98-107)
[2019-07-06 04:53] LABS: CREATININE 1.01 mg/dL (0.7-1.3)
[2019-07-06] MEDS: OXYcodone 5 MG/5 ML ORAL.SOL UDC PO PRN ×3 (04:58→17:56)
[2019-07-06 05:51] LABS: BASOPHILS % (AUTO) 0 % (0-1); EOSINOPHILS % (AUTO) 0 % (1-7); LYMPHOCYTES # (AUTO) 0.16 x10^3/uL (1-3.4); LYMPHOCYTES % (AUTO) 2 % (22-44); MD SCAN; MONOCYTES # (AUTO) 0.42 x10^3/uL (0.2-0.8); MONOCYTES % (AUTO) 4 % (2-9); NEUTROPHILS # (AUTO) 10.39 x10^3/uL (1.8-6.8); NEUTROPHILS % (AUTO) 95 % (42-75)
[2019-07-06] MEDS: SUCRALFATE 1 GM/10 ML UDC NG SCH ×4 (06:02→20:37)
[2019-07-06] MEDS: DEXTROSE 5% 500 ML IV SCH ×2 (07:00→23:00)
[2019-07-06] MEDS: PANTOPRAZOLE 40 MG IV IVPush SCH ×2 (07:54→20:37)
[2019-07-06 08:37] VITALS: BP 113/75
[2019-07-06] MEDS: FENTANYL REMOVE PATCH NOTE XX SCH (11:30)
[2019-07-06] MEDS: FENTANYL 25 MCG PATCH TD SCH (11:44)
[2019-07-06] MEDS: ENOXAPARIN 40 MG/0.4 ML SQ SCH (11:44)
[2019-07-06 13:46] VITALS: BP 137/95
[2019-07-06 19:06] VITALS: BP 111/79
[2019-07-07 00:20] VITALS: BP 132/81
[2019-07-07 04:44] LABS: MEAN CORPUSCULAR HEMOGLOBIN 28.7 pg (27.5-34.5); MEAN CORPUSCULAR HGB CONC 32.1 g/dL (33.2-36.2); MEAN CORPUSCULAR VOLUME 89.5 fL (81-97); PLATELET COUNT 219 x10^3/uL (130-400); RED CELL DISTRIBUTION WIDTH 17.6 % (9.4-14.8)
[2019-07-07 04:52] LABS: ANION GAP 4 mmol/L (5-15); CALCIUM 9.1 mg/dL (8.5-10.1); CHLORIDE 110 mmol/L (98-107); CREATININE 1.09 mg/dL (0.7-1.3)
[2019-07-07 05:14] LABS: BASOPHILS % (AUTO) 0 % (0-1); EOSINOPHILS # (AUTO) 0.01 x10^3/uL (0-0.4); EOSINOPHILS % (AUTO) 0 % (1-7); LYMPHOCYTES # (AUTO) 0.16 x10^3/uL (1-3.4); LYMPHOCYTES % (AUTO) 2 % (22-44); MD SCAN; MONOCYTES # (AUTO) 0.38 x10^3/uL (0.2-0.8); MONOCYTES % (AUTO) 4 % (2-9); NEUTROPHILS # (AUTO) 10.18 x10^3/uL (1.8-6.8); NEUTROPHILS % (AUTO) 95 % (42-75)
[2019-07-07] MEDS: SUCRALFATE 1 GM/10 ML UDC NG SCH ×4 (05:58→20:25)
[2019-07-07] MEDS: DEXAMETHASONE 4 MG/ML, 1ML IVPush SCH ×5 (05:58→23:34)
[2019-07-07] MEDS: AMPICILLIN/SULBACTAM 1,500 MG in SODIUM CHLORIDE 0.9% 50 ML IV SCH ×5 (05:58→23:35)
[2019-07-07] MEDS: OXYcodone 5 MG/5 ML ORAL.SOL UDC PO PRN ×4 (05:59→18:27)
[2019-07-07 07:18] VITALS: BP 110/71
[2019-07-07] MEDS: morphine SULFATE 10 MG/ML, 1ML IVPush PRN ×4 (08:57→23:35)
[2019-07-07] MEDS: PANTOPRAZOLE 40 MG IV IVPush SCH ×2 (09:00→20:25)
[2019-07-07] MEDS: ENOXAPARIN 40 MG/0.4 ML SQ SCH (11:54)
[2019-07-07 13:30] VITALS: BP 120/80
[2019-07-07 19:03] VITALS: BP 118/79
[2019-07-07] MEDS: DEXTROSE 5% 500 ML IV SCH (20:25)
[2019-07-08 00:08] VITALS: BP 133/84
[2019-07-08 05:40] LABS: BASOPHILS % (AUTO) 0 % (0-1); EOSINOPHILS # (AUTO) 0.02 x10^3/uL (0-0.4); EOSINOPHILS % (AUTO) 0 % (1-7); LYMPHOCYTES # (AUTO) 0.26 x10^3/uL (1-3.4); LYMPHOCYTES % (AUTO) 3 % (22-44); MD NO; MEAN CORPUSCULAR HEMOGLOBIN 28.6 pg (27.5-34.5); MEAN CORPUSCULAR HGB CONC 32.2 g/dL (33.2-36.2); MEAN PLATELET VOLUME 11.2 fL (7.4-10.4); MONOCYTES # (AUTO) 0.48 x10^3/uL (0.2-0.8); MONOCYTES % (AUTO) 5 % (2-9); NEUTROPHILS # (AUTO) 9.01 x10^3/uL (1.8-6.8); NEUTROPHILS % (AUTO) 92 % (42-75); PLATELET COUNT 190 x10^3/uL (130-400); RED BLOOD COUNT 3.89 x10^6/uL (4.38-5.82); RED CELL DISTRIBUTION WIDTH 17.7 % (9.4-14.8)
[2019-07-08 05:53] LABS: ANION GAP 6 mmol/L (5-15); CALCIUM 8.8 mg/dL (8.5-10.1); CHLORIDE 109 mmol/L (98-107)
[2019-07-08 05:55] LABS: CREATININE 0.93 mg/dL (0.7-1.3)
[2019-07-08] MEDS: AMPICILLIN/SULBACTAM 1,500 MG in SODIUM CHLORIDE 0.9% 50 ML IV SCH ×2 (06:15→12:11)
[2019-07-08] MEDS: SUCRALFATE 1 GM/10 ML UDC NG SCH ×4 (06:15→20:03)
[2019-07-08] MEDS: DEXAMETHASONE 4 MG/ML, 1ML IVPush SCH ×3 (06:15→18:29)
[2019-07-08] MEDS: DEXTROSE 5% 500 ML IV SCH ×2 (06:15→17:36)
[2019-07-08 07:39] VITALS: BP 132/85
[2019-07-08] MEDS: PANTOPRAZOLE 40 MG IV IVPush SCH ×2 (07:48→20:03)
[2019-07-08] MEDS: OXYcodone 5 MG/5 ML ORAL.SOL UDC PO PRN ×2 (07:57→17:29)
[2019-07-08] MEDS: ENOXAPARIN 40 MG/0.4 ML SQ SCH (12:11)
[2019-07-08] MEDS: morphine SULFATE 10 MG/ML, 1ML IVPush PRN ×2 (12:28→20:18)
[2019-07-08 13:30] VITALS: BP 128/83
[2019-07-08 18:57] VITALS: BP 115/75
[2019-07-09] MEDS: DEXAMETHASONE 4 MG/ML, 1ML IVPush SCH ×4 (00:29→17:35)
[2019-07-09] MEDS: morphine SULFATE 10 MG/ML, 1ML IVPush PRN (00:29)
[2019-07-09 01:28] VITALS: BP 110/79
[2019-07-09 05:36] LABS: ANION GAP 3 mmol/L (5-15); CHLORIDE 106 mmol/L (98-107); CREATININE 0.94 mg/dL (0.7-1.3)
[2019-07-09 05:43] LABS: MEAN CORPUSCULAR HEMOGLOBIN 28.9 pg (27.5-34.5); MEAN CORPUSCULAR HGB CONC 32.7 g/dL (33.2-36.2); MEAN CORPUSCULAR VOLUME 88.3 fL (81-97); MEAN PLATELET VOLUME 11.3 fL (7.4-10.4); PLATELET COUNT 204 x10^3/uL (130-400); RED BLOOD COUNT 3.92 x10^6/uL (4.38-5.82); RED CELL DISTRIBUTION WIDTH 17.6 % (9.4-14.8)
[2019-07-09 06:27] LABS: BASOPHILS % (AUTO) 0 % (0-1); EOSINOPHILS % (AUTO) 0 % (1-7); LYMPHOCYTES # (AUTO) 0.16 x10^3/uL (1-3.4); LYMPHOCYTES % (AUTO) 2 % (22-44); MD SCAN; MONOCYTES # (AUTO) 0.57 x10^3/uL (0.2-0.8); MONOCYTES % (AUTO) 6 % (2-9); NEUTROPHILS # (AUTO) 8.86 x10^3/uL (1.8-6.8); NEUTROPHILS % (AUTO) 92 % (42-75)
[2019-07-09 07:11] VITALS: BP 105/75
[2019-07-09] MEDS: PANTOPRAZOLE 40 MG IV IVPush SCH ×2 (08:55→19:53)
[2019-07-09] MEDS: OXYcodone 5 MG/5 ML ORAL.SOL UDC PO PRN (08:55)
[2019-07-09] MEDS: SUCRALFATE 1 GM/10 ML UDC NG SCH ×3 (08:55→19:53)
[2019-07-09] MEDS: LIDODERM 5% PATCH TD PRN (08:56)
[2019-07-09] MEDS: FENTANYL REMOVE PATCH NOTE XX SCH (11:30)
[2019-07-09] MEDS ORDERED: DEXTROSE 5% 1,000 ML IV SCH (12:00)
[2019-07-09] MEDS: FENTANYL 25 MCG PATCH TD SCH (12:30)
[2019-07-09] MEDS: ENOXAPARIN 40 MG/0.4 ML SQ SCH (12:31)
[2019-07-09 12:40] VITALS: BP 112/75
[2019-07-09] MEDS: OXYcodone/APAP 5/325MG TABLET PO PRN ×3 (14:05→22:03)
[2019-07-09 19:56] VITALS: BP 103/69
[2019-07-10] MEDS: DEXAMETHASONE 4 MG/ML, 1ML IVPush SCH ×4 (00:13→18:40)
[2019-07-10 02:38] VITALS: BP 122/78
[2019-07-10 04:42] LABS: BASOPHILS % (AUTO) 0 % (0-1); EOSINOPHILS % (AUTO) 0 % (1-7); LYMPHOCYTES # (AUTO) 0.11 x10^3/uL (1-3.4); LYMPHOCYTES % (AUTO) 1 % (22-44); MD NO; MEAN CORPUSCULAR HEMOGLOBIN 28.4 pg (27.5-34.5); MEAN CORPUSCULAR HGB CONC 32.4 g/dL (33.2-36.2); MEAN CORPUSCULAR VOLUME 87.6 fL (81-97); MONOCYTES # (AUTO) 0.47 x10^3/uL (0.2-0.8); MONOCYTES % (AUTO) 6 % (2-9); NEUTROPHILS # (AUTO) 7.31 x10^3/uL (1.8-6.8); NEUTROPHILS % (AUTO) 93 % (42-75); PLATELET COUNT 182 x10^3/uL (130-400); RED BLOOD COUNT 3.94 x10^6/uL (4.38-5.82); RED CELL DISTRIBUTION WIDTH 17.4 % (9.4-14.8)
[2019-07-10 04:51] LABS: ALANINE AMINOTRANSFERASE 34 U/L (12-78); ANION GAP 3 mmol/L (5-15); CALCIUM 9.1 mg/dL (8.5-10.1); CHLORIDE 104 mmol/L (98-107)
[2019-07-10 04:54] LABS: ALKALINE PHOSPHATASE 122 U/L (45-117); BILIRUBIN,TOTAL 0.4 mg/dL (0.2-1.0); CREATININE 0.93 mg/dL (0.7-1.3); TOTAL PROTEIN 6.4 g/dL (6.4-8.2)
[2019-07-10] MEDS: OXYcodone/APAP 5/325MG TABLET PO PRN ×4 (05:39→21:14)
[2019-07-10] MEDS: SUCRALFATE 1 GM/10 ML UDC NG SCH ×4 (05:39→21:14)
[2019-07-10 07:26] VITALS: BP 121/69
[2019-07-10] MEDS: PANTOPRAZOLE 40 MG IV IVPush SCH ×2 (08:17→21:14)
[2019-07-10] MEDS ORDERED: BENZONATATE 100 MG CAPSULE PO PRN (09:30)
--- NOTE | 2019-07-10 10:14 | NUR ---
Jevity 1.2 goal: 65 ml/hr Addendum: 07/10/19 at [address] Amended: Links added.
[2019-07-10] MEDS: GUAIFENESIN ER 600 MG TABLET PO SCH ×2 (11:10→21:15)
[2019-07-10] MEDS: GABAPENTIN 100 MG CAPSULE PO SCH ×3 (11:15→21:15)
[2019-07-10] MEDS: ENOXAPARIN 40 MG/0.4 ML SQ SCH (13:08)
[2019-07-10 13:42] VITALS: BP 111/73
[2019-07-10] MEDS ORDERED: MORPHINE SULFATE 4 MG/ML, 1ML ONE (18:06)
[2019-07-10] MEDS: morphine SULFATE 10 MG/ML, 1ML IVPush PRN (18:09)
[2019-07-10 18:58] VITALS: BP 102/70
[2019-07-11] MEDS: DEXAMETHASONE 4 MG/ML, 1ML IVPush SCH ×4 (01:03→17:38)
[2019-07-11 02:05] VITALS: BP 115/77
[2019-07-11] MEDS: morphine SULFATE 10 MG/ML, 1ML IVPush PRN ×3 (04:41→15:02)
[2019-07-11 04:49] LABS: ANION GAP 6 mmol/L (5-15); CALCIUM 8.6 mg/dL (8.5-10.1); CHLORIDE 101 mmol/L (98-107); CREATININE 0.94 mg/dL (0.7-1.3)
[2019-07-11] MEDS: SUCRALFATE 1 GM/10 ML UDC NG SCH ×4 (07:00→21:15)
[2019-07-11] MEDS: PANTOPRAZOLE 40 MG IV IVPush SCH ×2 (08:35→21:18)
[2019-07-11] MEDS: GABAPENTIN 100 MG CAPSULE PO SCH ×2 (08:36→15:02)
[2019-07-11] MEDS: GUAIFENESIN ER 600 MG TABLET PO SCH (08:36)
[2019-07-11 08:37] VITALS: BP 130/72
[2019-07-11] MEDS ORDERED: FENTANYL 12 MCG PATCH TD SCH (09:00)
[2019-07-11] MEDS ORDERED: PHARMACY INSTRUCTION MC PRN (09:00)
[2019-07-11] MEDS ORDERED: FENTANYL 12 MCG PATCH ONE (09:46)
[2019-07-11] MEDS ORDERED: FENTANYL 25 MCG PATCH TD SCH (10:00)
[2019-07-11] MEDS ORDERED: OXYcodone/APAP 5/325MG TABLET ONE (11:30)
[2019-07-11] MEDS: OXYcodone/APAP 5/325MG TABLET PO PRN ×3 (11:37→21:18)
[2019-07-11] MEDS: ENOXAPARIN 40 MG/0.4 ML SQ SCH (11:38)
[2019-07-11 13:09] VITALS: BP 111/75
[2019-07-11 19:43] VITALS: BP 111/69
[2019-07-11] MEDS ORDERED: GUAIFENESIN 100 MG/5 ML, 10ML UDC PO SCH (21:00)
[2019-07-11] MEDS: GABAPENTIN 250 MG/5 ML ORAL SOL PEG SCH (21:00)
[2019-07-11] MEDS ORDERED: GABAPENTIN 250 MG/5 ML ORAL SOL PO SCH (21:00)
[2019-07-11] MEDS: GUAIFENESIN 100 MG/5 ML, 10ML UDC PO SCH (21:16)
[2019-07-12 00:28] VITALS: BP 94/64
[2019-07-12] MEDS: DEXAMETHASONE 4 MG/ML, 1ML IVPush SCH ×4 (00:30→18:08)
[2019-07-12] MEDS: GUAIFENESIN 100 MG/5 ML, 10ML UDC PO SCH ×6 (00:30→20:30)
[2019-07-12] MEDS: OXYcodone/APAP 5/325MG TABLET PO PRN ×4 (03:09→20:30)
[2019-07-12 06:38] LABS: ANION GAP 6 mmol/L (5-15); CALCIUM 8.9 mg/dL (8.5-10.1); CHLORIDE 104 mmol/L (98-107)
[2019-07-12 06:39] VITALS: BP 114/77
[2019-07-12 06:41] LABS: CREATININE 0.99 mg/dL (0.7-1.3)
[2019-07-12] MEDS: GABAPENTIN 250 MG/5 ML ORAL SOL PEG SCH ×2 (09:15→16:26)
[2019-07-12] MEDS: PANTOPRAZOLE 40 MG IV IVPush SCH ×2 (09:16→20:30)
[2019-07-12] MEDS: SUCRALFATE 1 GM/10 ML UDC NG SCH ×4 (09:16→20:30)
[2019-07-12] MEDS: FENTANYL REMOVE PATCH NOTE XX SCH (09:18)
[2019-07-12] MEDS ORDERED: FENTANYL 25 MCG PATCH TD SCH (10:00)
[2019-07-12] MEDS ORDERED: FENTANYL 12 MCG PATCH TD SCH (10:00)
[2019-07-12] MEDS ORDERED: FENTANYL REMOVE PATCH NOTE XX SCH (10:30)
[2019-07-12] MEDS: ENOXAPARIN 40 MG/0.4 ML SQ SCH (11:46)
[2019-07-12] MEDS: morphine SULFATE 10 MG/ML, 1ML IVPush PRN (11:54)
[2019-07-12 13:03] VITALS: BP 117/75
[2019-07-12] MEDS ORDERED: BENZ-17 PO (14:15)
[2019-07-12] MEDS ORDERED: GUAI100L11 PO (14:15)
[2019-07-12] MEDS ORDERED: BISA10SU4 PR (14:15)
[2019-07-12] MEDS ORDERED: LIDO700A20 TD (14:15)
[2019-07-12] MEDS ORDERED: DEXA4TAB66 PEG (14:15)
[2019-07-12] MEDS ORDERED: SUCR1ORA5 NG (14:15)
[2019-07-12] MEDS ORDERED: GABA250S3 PEG (14:15)
[2019-07-12 19:18] VITALS: BP 114/79
[2019-07-13 00:53] VITALS: BP 124/81
[2019-07-13] MEDS: DEXAMETHASONE 4 MG/ML, 1ML IVPush SCH ×3 (00:55→12:49)
[2019-07-13] MEDS: GUAIFENESIN 100 MG/5 ML, 10ML UDC PO SCH ×4 (00:55→12:36)
[2019-07-13] MEDS: GABAPENTIN 250 MG/5 ML ORAL SOL PEG SCH ×2 (00:55→09:00)
[2019-07-13] MEDS: OXYcodone/APAP 5/325MG TABLET PO PRN ×3 (00:56→12:49)
[2019-07-13] MEDS: SUCRALFATE 1 GM/10 ML UDC NG SCH ×2 (06:15→09:33)
[2019-07-13 06:59] VITALS: BP 114/74
[2019-07-13] MEDS: PANTOPRAZOLE 40 MG IV IVPush SCH (09:32)
[2019-07-13] MEDS: morphine SULFATE 10 MG/ML, 1ML IVPush PRN (09:33)
[2019-07-13] MEDS: ENOXAPARIN 40 MG/0.4 ML SQ SCH (12:37)
[2019-07-13 13:41] VITALS: BP 123/80
== END 2019-07-13 15:05 | disposition home health service (06) | DRG 177 ==
LOC: ED 16:17 → EDIP 16:21 → 4NE 18:28 → 4NW 06-24 18:00
PROVIDERS: ADMIT Hospitalist; ATTEND Hospitalist
PROC: 3E0G76Z Introduction of Nutritional Substance into Upper GI, Via Natural or Artificial Opening (ICD-10-PCS; 2019-06-29)
PROC: 0DH63UZ Insertion of Feeding Device into Stomach, Percutaneous Approach (ICD-10-PCS; principal; 2019-06-29 09:30)
DX: J69.0 Pneumonitis due to inhalation of food and vomit (principal); E43 Unspecified severe protein-calorie malnutrition; G93.6 Cerebral edema; C34.02 Malignant neoplasm of left main bronchus; C78.1 Secondary malignant neoplasm of mediastinum; C78.7 Secondary malignant neoplasm of liver and intrahepatic bile duct; C79.31 Secondary malignant neoplasm of brain; C79.51 Secondary malignant neoplasm of bone; Z68.1 Body mass index [BMI] 19.9 or less, adult; E87.0 Hyperosmolality and hypernatremia; D35.2 Benign neoplasm of pituitary gland; D63.8 Anemia in other chronic diseases classified elsewhere; G89.3 Neoplasm related pain (acute) (chronic); H02.402 Unspecified ptosis of left eyelid; H53.461 Homonymous bilateral field defects, right side; J38.01 Paralysis of vocal cords and larynx, unilateral; J44.9 Chronic obstructive pulmonary disease, unspecified; K21.9 Gastro-esophageal reflux disease without esophagitis; K22.8 Other specified diseases of esophagus; K44.9 Diaphragmatic hernia without obstruction or gangrene; R13.12 Dysphagia, oropharyngeal phase; Z77.22 Contact with and (suspected) exposure to environmental tobacco smoke (acute) (chronic); Z92.3 Personal history of irradiation; Z87.891 Personal history of nicotine dependence; E88.09 Other disorders of plasma-protein metabolism, not elsewhere classified
CPT/HCPCS: 36415; 70491; 71045; 71046; 71260; 74018; 74220; 74230; 77290; 77295; 77300; 77334; 77336; 77387; 77412; 80048; 80053; 81003; 83605; 83735; 83930; 84100; 84145; 85025; 85610; 87040; 93005; 96365; 96375; 96376; 99285; B4087; G0378; J0690; J1100; J1170; J1650; J2405; J2543; J2704; J7070; Q9967; C9113; J0295; J0360; J2060; J2270; J7030; J7060; J7120

== ENCOUNTER 2019-07-19 07:24 | Outpatient (CLI) | payer OTHER ==
[~2019-07-19 07:24] MED LIST changes: +BENZ-17 PO; +BISA10SU4 PR; +DEXA4TAB66 PEG; +GABA250S3 PEG; +GUAI100L11 PO; +LIDO700A20 TD; +OXYC5CAP2 PO; +SUCR1ORA5 NG
== END 2019-07-19 23:59 | disposition home or self-care (01) ==
LOC: ROC 07:24
PROVIDERS: ATTEND Radiology Radiation Oncology
DX: C79.31 Secondary malignant neoplasm of brain (principal); C34.12 Malignant neoplasm of upper lobe, left bronchus or lung
CPT/HCPCS: 99213; G0463

== ENCOUNTER 2019-07-19 10:06 | Outpatient (CLI) | payer OTHER | END 2019-07-19 23:59 | disposition home or self-care (01) | LOC: CFH 10:06 | PROVIDERS: ATTEND Radiology Radiation Oncology | DX: C34.12 Malignant neoplasm of upper lobe, left bronchus or lung (principal); M79.604 Pain in right leg ==